=== PATIENT | male | born 1990 | race Caucasian/White ===

== ENCOUNTER 2021-01-02 23:04 | Emergency (ER) | payer BC, SELFPAY ==
[2021-01-02 23:35] VITALS: BP 125/77; PULSE 76; RESP 20; TEMP 36.5; O2SAT 97
[2021-01-03] MEDS: methylPREDNISolone SOD SUCC 125 MG VIAL IM (00:03)
[2021-01-03] MEDS: diphenhydrAMINE HCl CAP 25 MG CAPSULE 50 MG PO (00:11)
--- NOTE | 2021-01-03 00:11 | ED.SKABFB ---
HPI - Skin/Abscess/Foreign Bdy General Chief complaint: Skin/Abscess/Foreign Body Stated complaint: itchy everywhere Time Seen by Provider: 01/02/21 23:08 Source: patient and RN notes reviewed Mode of arrival: ambulatory Limitations: no limitations History of Present Illness complaint: other (mild generalized skin itching x several days.) Onset (ago): day(s) (10) Tetanus up to date: unsure Location: generalized Severity: mild Severity scale (1-10): 2 Quality: pruritic Pain Consistency: other (pain-free) Relieving factors: topical medication and medication Exacerbating factors: none Context: recent illness Associated symptoms: itching Related Data Home Medications Medication Instructions Recorded Confirmed methylphenidate HCl [Concerta] 54 mg PO DAILY 01/02/21 01/02/21 Allergies Allergy/AdvReac Type Severity Reaction Status Date / Time ibuprofen [From Motrin] AdvReac Nausea Verified 01/02/21 23:46 Review of Systems Review of Systems: All systems reviewed & are unremarkable except as noted in HPI and below Allergic/Immunologic: Comments: mild generalized skin itching PMFSH Past Medical History Medical History (Updated 01/03/21 @ 00:37 by Raisa Nguyen MD) Urticaria Exam Const: General: no acute distress Nutritional Appearance: well nourished Orientation/consciousness: patient oriented x3 HENMT: Head: normal to inspection Ears: external ears normal and TM's normal bilaterally General nose exam: Normal external nose present and Normal nares present Face and sinus: normal facial exam Mouth: Yes moist mucous membranes Eyes: Conjunctivae: conjunctivae normal Pupils: Equal, round and reactive pupils present EOM: EOMs intact bilaterally Neck: Neck: normal visual inspection and no lymphadenopathy Chest: Chest palpation & inspection: normal inspection of the chest Resp: Effort & Inspection: normal respiratory effort Auscultation: clear to auscultation bilaterally Cardio: Rate: regular rate Rhythm: regular rhythm GI: GI Palp: Yes Soft to palpation (non-tender) : General: Yes bladder normal to palpation and Yes no CVA tenderness Testes: Testes normal Back/Spine/Pelvis: Back: no CVA tenderness Skin: General skin exam: normal color Rashes: no rashes Neuro: General: patient oriented x3, moves all extremities, no meningeal signs, no focal motor deficits and CN's II-XI intact bilaterally Extrem: General: normal to inspection and no pedal edema Psych: Appearance: grossly normal and well kempt Mental Status: mental status grossly normal Thought content: Yes Normal thought content present Course Course Emergency Course: Pt was stable in the ED. less itching. Reevaluation(s) Date: 01/03/21 Time: 00:05 Vital Signs Vital signs: Vital Signs Temperature 36.5 C 01/02/21 23:35 Pulse Rate 76 01/02/21 23:35 Respiratory Rate 20 01/02/21 23:35 Blood Pressure 125/77 01/02/21 23:35 Pulse Oximetry 97 01/02/21 23:35 Temperature 36.5 C 01/03/21 00:12 Pulse Rate 76 01/03/21 00:12 Respiratory Rate 01/03/21 00:12 Blood Pressure 125/77 01/03/21 00:12 Pulse Oximetry 97 01/03/21 00:12 MDM - Skin/Abscess/Foreign Bdy Differential Diagnosis Differential diagnosis: Likely urticaria Medical Records Attestation: I reviewed the patient's medical records. Critical Care Time Critical Care Time Critical Care Time: No Total Critical Care Time: 0 Discharge Plan Discharge Clinical Impression: Urticaria Patient Disposition: Home, Self-Care Condition: Stable Instructions: Antibiotic Form, Urticaria (ED) Additional Instructions: home. May RTC prn. PMD in 1-2 days. Rx below. Topical anti-itch OTC creams. Prescriptions: New methylprednisolone [Methylpred DP] 4 mg tablets,dose pack See Rx Instructions .ROUTE .COMPLEX Qty: 21 RF: 0 diphenhydramine HCl [Benadryl] 25 mg capsule 50 mg PO TID PRN (Reason: allergic reaction) Qty: 20 RF
[2021-01-03 00:12] VITALS: BP 125/77; PULSE 76; RESP 20; TEMP 36.5; O2SAT 97
== END 2021-01-03 00:32 | disposition home or self-care (01) ==
PROVIDERS: Emergency Provider Emergency Medicine
DX: L50.9 Urticaria, unspecified (principal)
CPT/HCPCS: 96372; 99283; A9270; J2930

== ENCOUNTER 2021-07-15 12:58 | Outpatient (CLI) | payer BC, SELFPAY ==
--- NOTE | ~2021-07-15 | XR_ITS ---
XR ribs RT 2V w CXR 2V DATE: 07/15/2021 13:53 INDICATION: Intermittent right chest pain for 2 years TECHNIQUE: PA and lateral chest. 4 views of the right ribs. COMPARISON: 12/20/2015 2 view chest FINDINGS: No right rib fracture or bone destruction is detected. Normal heart size. No hilar or mediastinal enlargement. No pulmonary infiltrate or consolidation, ple ural effusion or pulmonary vascular congestion or pneumothorax. IMPRESSION: No right rib fracture No active cardiopulmonary disease Reviewed, dictated and finalized at location A.
== END 2021-07-15 12:59 | disposition home or self-care (01) ==
LOC: CHSLAB 13:03
PROVIDERS: PCP Family Medicine; Visit Provider Physician Assistant
DX: R07.81 Pleurodynia (principal)
CPT/HCPCS: 71046; 71100

== ENCOUNTER 2021-12-04 20:52 | Emergency (ER) | payer BC, SELFPAY ==
--- NOTE | ~2021-12-04 | XR_ITS ---
EXAMINATION: XR chest 1V DATE: 12/04/2021 22:20 INDICATION: Chest pain. TECHNIQUE: A single frontal view of the chest was obtained. COMPARISON: Chest 2 views 07/15/2021, CT abdomen 12/20/15 FINDINGS: The chest demonstrates clear lungs without pneumonia, pleural effusion, or pneumothorax. Th e heart size is normal. IMPRESSION: 1. No acute cardiopulmonary disease. Reviewed, dictated and finalized at location A.
--- NOTE | ~2021-12-04 | CT_ITS ---
EXAMINATION: CT brain wo con INDICATION: Headache COMPARISON: None TECHNIQUE: Standard unenhanced head CT. The dose-length product (DLP) was 605.33 mGy-cm. The mA was a djusted according to patient size. Iterative reconstruction technique was employed. FINDINGS: There is no intracranial hemorrhage, acute infarction, or abnormal mass lesion. The ventric les are normal. There is no abnormal mass effect or midline shift. The blair-white matter differentiat ion is normal. The basal cisterns are patent. The orbits are normal. There is mild mucosal thickening of the paranasal sinuses. IMPRESSION: 1. No acute intracranial abnormality. Reviewed, dictated and finalized at location B.
[2021-12-04 21:23] VITALS: BP 129/91; PULSE 105; RESP 18; TEMP 36.6; O2SAT 96
--- NOTE | 2021-12-04 21:57 | ECG_ITS ---
Measurements Intervals [place] Rate: 86 P: 34 WI: 149 QRS: 9 QRSD: 107 T: 39 QT: 350 QTc: 419 Interpretive Statements SINUS RHYTHM INCOMPLETE RIGHT BUNDLE BRANCH BLOCK CANNOT RULE OUT SEPTAL MYOCARDIAL INFARCTION BORDERLINE ECG NO PREVIOUS ECG AVAILABLE FOR COMPARISON Electronically Signed On 12-05-2021 16:07:08 CDT by Andrew Marquez M.D.
[2021-12-04 22:47] LABS: Basophils Absolute Auto 0.05 K/mm3 (0.00-0.10); Basophils Percent Auto 0.7 % (0.0-1.0); Eosinophils Absolute Auto 0.12 K/mm3 (0.02-0.50); Eosinophils Percent Auto 1.6 % (1.0-6.0); Hematocrit 40.8 % (40.0-54.0); Hemoglobin 13.5 g/dL (14.0-18.0); Immature Granulocyte Absolute 0.03 K/mm3 (0.00-0.00); Immature Granulocyte Percent A 0.4 % (0.0-0.0); Lymphocytes Absolute Auto 2.61 K/mm3 (1.10-4.50); Lymphocytes Percent Auto 35.3 % (18.0-42.0); Mean Corpuscular HGB Conc 33.1 g/dL (32.0-36.0); Mean Corpuscular Hemoglobin 29.7 pg (27.0-31.0); Mean Corpuscular Volume 89.7 fL (78.0-102.0); Mean Platelet Volume 10.4 fl (8.7-11.0); Monocytes Absolute Auto 0.45 K/mm3 (0.10-0.90); Monocytes Percent Auto 6.1 % (2.0-11.0); Neutrophils Absolute Auto 4.1 K/mm3 (1.7-7.2); Neutrophils Percent Auto 55.9 % (50.0-70.0); Platelet Count Result 232 K/mm3 (150-420); Red Blood Count 4.55 M/mm3 (4.70-6.10); Red Cell Distribution Width 12.3 % (11.6-14.4); White Blood Count 7.4 K/mm3 (4.8-10.8)
[2021-12-04 22:55] LABS: Add Urine Microscopic? NO; Appearance Urine Clear (Clear); Bilirubin Urine Negative (Negative); Blood Urine Negative (Negative); Color Urine Light Yellow (Yellow); Glucose Urine UA Negative (Negative); Ketones Urine Negative (Negative); Leukocyte Esterase Ur Negative (Negative); Nitrate Urine Negative (Negative); Protein Urine Negative (Negative); Specific Grav Ur >= 1.030 (1.010-1.020); Urobilinogen Urine 0.2 mg/dL (0.2-1.0); pH Urine 5.5 (5.0-8.0)
[2021-12-04 23:01] LABS: Amphetamine Screen Urine Negative (Negative); Barbiturate Screen Urine Negative (Negative); Benzodiazepines Screen Urine Negative (Negative); Cannabinoid Screen Urine Negative (Negative); Cocaine Screen Urine Negative (Negative); Methadone Screen Urine Negative (Negative); Opiate Screen Urine Negative (Negative); Phencyclidine Screen Urine Negative (Negative)
[2021-12-04 23:03] LABS: Alanine Aminotransferase 35 U/L (16-63); Albumin Level 3.6 g/dL (3.4-5.0); Alkaline Phosphatase 63 U/L (46-116); Anion Gap 7 mmol/L (8-16); Aspartate Amino Transferase 24 U/L (15-37); Bilirubin,Total 0.2 mg/dL (0.00-1.00); Blood Urea Nitrogen 17 mg/dL (7-18); Carbon Dioxide 28 mmol/L (21-32); Chloride 105 mmol/L (98-108); Estimated Glomerular Filt Rate > 60; Glucose 113 mg/dL (70-99); Magnesium 2.1 mg/dL (1.8-2.4); Osmolality Calculated 292 mOsm/kg (285-295); Potassium 3.8 mmol/L (3.5-5.1); Sodium 140 mmol/L (136-145); Total Protein 6.9 g/dL (6.4-8.2)
[2021-12-04 23:13] LABS: Ethanol < 3 mg/dL (0-6); Troponin I < 4.0 ng/L (0.00-60.4)
--- NOTE | 2021-12-04 23:19 | ED.GENADULT ---
HPI - General Adult General Chief complaint: Unspecified Stated complaint: body cramping up Time Seen by Provider: 12/04/21 20:54 Source: patient and RN notes reviewed Mode of arrival: ambulatory Limitations: no limitations History of Present Illness complaint: generalized muscle cramping with light-headedness and fainting episodes whi Onset (ago): day(s) (3) Radiation: non-radiation Severity: mild Severity scale (1-10): 3 Pain Consistency: other (no acute pain.) Relieving factors: none Exacerbating factors: none Associated symptoms: syncope Related Data Home Medications Medication Instructions Recorded Confirmed methylphenidate HCl 54 mg 54 mg PO DAILY 01/02/21 12/04/21 tablet,extended release 24 hr (Concerta) Allergies Allergy/AdvReac Type Severity Reaction Status Date / Time ibuprofen [From Motrin] AdvReac Nausea Verified 01/02/21 23:46 Review of Systems Review of Systems: All systems reviewed & are unremarkable except as noted in HPI and below Constitutional: Constitutional: Reports no additional constitutional complaints Eyes: Eyes: Reports no additional eye complaints ENT: Reports system reviewed and no additional complaints, except as documented Cardiovascular: Cardiovascular: Reports no additional cardiovascular complaints Respiratory: Respiratory: Reports no additional respiratory complaints Gastrointestinal: Gastrointestinal: Reports no additional gastrointestinal complaints Musculoskeletal: Musculoskeletal: Reports no additional musculoskeletal complaints and Reports muscle cramps Integumentary/Breasts: Skin/Breast: Reports system reviewed and no additional complaints, except as docu Neurologic: Reports system reviewed and no additional complaints, except as documented and Reports syncope Psychiatric: Psychiatric: Reports no additional psychiatric complaints Endocrine: Endocrine: Reports no additional endocrine complaints Hematologic/Lymphatic: Hematologic/Lymphatic: Reports no additional hematologic/lymphatic complaints Allergic/Immunologic: Allergic/Immunologic: Reports no additional allergic/immunologic complaints PMFSH Past Medical History Medical History ADD (attention deficit disorder) Muscle cramping Urticaria Exam Const: General: cooperative and no acute distress Nutritional Appearance: well nourished Orientation/consciousness: patient oriented x3 Limitations: no limitations HENMT: Head: normal to inspection Ears: external ears normal, TM's normal bilaterally and EAC's normal General nose exam: Normal external nose present and Normal nares present Face and sinus: normal facial exam and sinuses nontender Mouth: Yes Normal oral and palatal mucosa present and Yes moist mucous membranes Teeth and gingiva: dentition normal Throat: posterior oropharynx normal Eyes: Conjunctivae: conjunctivae normal Pupils: Equal, round and reactive pupils present EOM: EOMs intact bilaterally Neck: Neck: normal visual inspection, no lymphadenopathy and no meningeal signs Chest: Chest palpation & inspection: normal inspection of the chest Resp: Effort & Inspection: normal respiratory effort Auscultation: clear to auscultation bilaterally Cardio: Rate: regular rate Rhythm: regular rhythm GI: GI Palp: Yes Soft to palpation and No Tenderness to palpation present (GI) Auscultation: normal bowel sounds : General: Yes bladder normal to palpation and Yes no CVA tenderness Back/Spine/Pelvis: Back: no CVA tenderness Skin: General skin exam: normal color Rashes: no rashes Wounds: no wounds Neuro: General: patient oriented x3, moves all extremities, no meningeal signs, no focal motor deficits and CN's II-XI intact bilaterally Cranial nerves: Yes Equal, round and reactive pupils present and Yes Nystagmus not present Speech: normal speech Gait exam (Neuro): Normal gait present Extrem: General: normal to inspection and
== END 2021-12-04 23:34 | disposition home or self-care (01) ==
PROVIDERS: Emergency Provider Emergency Medicine; PCP Family Medicine
DX: R55 Syncope and collapse (principal)
CPT/HCPCS: 36415; 70450; 71045; 80053; 80307; 81003; 83735; 84484; 85025; 93005; 99284

== ENCOUNTER 2022-08-26 10:00 | Emergency (ER) | payer BC, SELFPAY ==
--- NOTE | ~2022-08-26 | CT_ITS ---
EXAMINATION: CT knee LT wo con DATE: 08/26/2022 11:02 INDICATION: Left knee pain TECHNIQUE: Computed tomography (CT) of the left knee was performed without intravenous contrast. The dose-length product was 597.13 mGy-cm. Automated exposure control and iterative reconstruction techni que were employed. COMPARISON: None FINDINGS: There is anatomic alignment. No fracture, subluxation or dislocation. There is mild osteoar thritis. No significant joint effusion. IMPRESSION: 1. No acute bone or joint abnormality. 2: Mild osteoarthritis. Reviewed, dictated and finalized at location A.
[2022-08-26 10:04] VITALS: BP 138/80; PULSE 77; RESP 18; TEMP 36.3
[2022-08-26] MEDS: KETOROLAC (*BKC) 60 MG/2 ML VIAL IM (10:31)
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
[2022-08-26 11:31] VITALS: BP 152/75; PULSE 82; RESP 17; TEMP 36.9; O2SAT 100
== END 2022-08-26 11:33 | disposition home or self-care (01) ==
PROVIDERS: Emergency Provider Emergency Medicine; PCP Family Medicine
DX: S83.412A Sprain of medial collateral ligament of left knee, initial encounter (principal); W20.8XXA Other cause of strike by thrown, projected or falling object, initial encounter; Y92.810 Car as the place of occurrence of the external cause
CPT/HCPCS: 73700; 96372; 99284; J1885; L1830

== ENCOUNTER 2023-12-24 18:48 | Emergency (ER) | payer BC, SELFPAY ==
[2023-12-24 18:48] VITALS: BP 136/77; PULSE 97; RESP 16; TEMP 36.8; O2SAT 98
--- NOTE | 2023-12-24 18:58 | PC.NURSE ---
assumed care. report received from lisa barrios.
[2023-12-24] MEDS: CLINDAMYCIN HCL 150 MG CAP 450 MG PO (19:06)
[2023-12-24] MEDS: ONDANSETRON HCL ODT 4 MG TABLET PO (19:06)
--- NOTE | 2023-12-24 19:09 | PC.NURSE ---
patient asked this rn if right elbow could be numbed. dr doll already told patient that area could not be numbed. patient then asked if he could rub muscle relaxer on area. educated patient on cellulitis and the need to take antibiotics for elbow. patient states oh ok. thats what he said too
--- NOTE | 2023-12-24 19:10 | ED.GENADULT ---
HPI - General Adult General Chief complaint: Wound/Laceration Stated complaint: spider bite. Time Seen by Provider: 12/24/23 18:55 History of Present Illness HPI narrative: Matthieu is a 33M that presented to the ED with pain and swelling in his right elbow. He was reportedly bitten by a spider a couple days ago. He had some purulent drainage yesterday but today it has become more painful, warm and has spreading erythema. Related Data Home Medications Medication Instructions Recorded Confirmed lorazepam 1 mg tablet 2 mg PO DAILY PRN Anxiety 04/30/23 12/24/23 gabapentin 800 mg tablet 800 mg PO BID 12/24/23 12/24/23 Allergies Allergy/AdvReac Type Severity Reaction Status Date / Time tramadol Allergy Intermediate Rash Verified 05/31/23 13:57 ibuprofen [From Motrin] AdvReac Other Verified 12/24/23 18:50 Review of Systems Review of Systems: All systems reviewed & are unremarkable except as noted in HPI and below PMFSH Past Medical History Medical History ADD (attention deficit disorder) Allergies Anxiety Muscle cramping Urticaria Family History Family History Father Diabetes mellitus Hypertension Mother Diabetes mellitus Social History Social History Social History: Caffeine- Coffee/tea Smoking status: Never smoker Alcohol intake: current Alcohol use details: beer Substance use: never Substance use type: does not use Lack of Transportation: No Lack of Food: Sometimes True Current Housing: I Have Housing Concerned About Future Housing: YES Difficulty Paying Gas/Electric Bills: Decline to Answer Difficulty Paying for Meds: No Currently Unemployed: No Education: Trade/Vocational Certificate Difficulty w/ Childcare or Family Care: No Living arrangements: with family Gender identity (if verbalized by the patient): Male Agree to blood products: Yes Exam Const: General: cooperative, healthy appearing, comfortable, no acute distress, well developed, alert, awake and Physically active Orientation/consciousness: oriented to person, oriented to place and oriented to time HENMT: Head: normal to inspection, normocephalic and atraumatic Ears: hearing grossly normal bilaterally and external ears normal Face/Nose/Sinus: Normal external nose present Eyes: General: appearance normal, both eyes and all related structures Periorbital: periorbital findings normal Sclera: sclerae normal Pupils: Equal, round and reactive pupils present Neck: Neck: normal visual inspection Chest: Chest palpation & inspection: normal inspection of the chest Resp: Effort & Inspection: normal respiratory effort, able to speak in complete sentences and no respiratory distress Cardio: Jugular venous distension: no JVD Skin: General skin exam: normal color and no rashes or lesions noted Other: right elbow had a break in the skin with a 10cm area of surrounding erythema that is warm and TTP. No fluctuance appreciated at this time. Neuro: General: oriented to person, oriented to place and oriented to time Cranial nerves: Yes Equal, round and reactive pupils present Extrem: General: normal to inspection Course Course Emergency Course: Ordered abx, hydroxyzine, toradol and zofran. Placed leslie wrap and ice. Vital Signs Vital signs: Vital Signs Temperature 98.2 F 12/24/23 18:48 Pulse Rate 97 12/24/23 18:48 Respiratory Rate 16 12/24/23 18:48 Blood Pressure 136/77 12/24/23 18:48 Pulse Oximetry 98 12/24/23 18:48 Oxygen Delivery Room Air 12/24/23 18:48 Temperature 98.2 F 12/24/23 18:48 Pulse Rate 97 12/24/23 18:48 Respiratory Rate 16 12/24/23 18:48 Blood Pressure 136/77 12/24/23 18:48 Pulse Oximetry 98 12/24/23 18:48 Oxygen Delivery Room Air 12/24/23 18:48 Medical Decision Making V
--- NOTE | 2023-12-24 19:25 | PC.NURSE ---
ice pack placed to right elbow
--- NOTE | 2023-12-24 19:29 | PC.NURSE ---
rima walked in room to hand pt ice and pt hand the wrap off his arm and stated he cant do the wrap because it puts too much pressure on the wound site
[2023-12-24] MEDS: hydrOXYzine HCL 25 MG TABLET 50 MG PO (19:41)
--- NOTE | 2023-12-24 19:45 | PC.NURSE ---
patient very anxious in room. states it stings, how am i supposed to wipe my butt? i can barely move my arm . Educated patient on cellulitis/swelling and the need to allow antibiotics to work. states he needs them to work now. educated again that antibiotics need time to get into the system and work on the infection. this rn has explained to patient several different times and ways about cellulitis care and antibiotic use to heal right elbow
--- NOTE | 2023-12-24 19:51 | PC.NURSE ---
Dr York at the bedside giving discharge instructions and additional education on cellulits to right elbow.
== END 2023-12-24 19:54 | disposition home or self-care (01) ==
PROVIDERS: Emergency Provider Family Medicine; PCP Family Medicine
DX: T63.301A Toxic effect of unspecified spider venom, accidental (unintentional), initial encounter (principal); L03.113 Cellulitis of right upper limb
CPT/HCPCS: 99283; A9270

== ENCOUNTER 2024-05-09 01:43 | Emergency (ER) | payer BC, SELFPAY ==
--- NOTE | ~2024-05-09 | XR_ITS ---
Right wrist Technique: PA, oblique, lateral, and ulnar deviation views were obtained. Clinical History: Injury Findings: No acute fracture or dislocation is seen. Osseous alignment is anatomic. Joint spaces are p reserved. Soft tissues are unremarkable. Impression: Unremarkable right wrist radiographs. Reviewed, dictated and finalized at location . 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
[2024-05-09 01:45] VITALS: BP 133/83; PULSE 90; RESP 18; TEMP 37.1; O2SAT 98
--- NOTE | 2024-05-09 01:59 | ED.UPPEXIN ---
HPI - Extremity Injury (Upper) General Chief Complaint: Extremity Injury, Upper Stated Complaint: upper extremity injury Time Seen by Provider: 05/09/24 01:47 Source: patient Mode of arrival: ambulatory Limitations: no limitations History of Present Illness HPI narrative: this is a 34-year-old male who presents with right wrist pain patient states that he had a minor fall of the week prior and has been having some discomfort to the right wrist area with some mild numbness to his thumb has a strong brisk radial pulse on the right. complaint: injury to: right Onset (ago): week(s) Other Extremity Injury: Right: wrist ( Painful with palpation) Handedness: right Place: outdoors Severity: mild Related Data Home Medications ?Medication ?Instructions ?Recorded ?Confirmed ?Last Taken ?Type lorazepam 1 mg tablet 2 mg PO DAILY PRN Anxiety 04/30/23 12/24/23 Unknown History gabapentin 800 mg tablet 800 mg PO BID 12/24/23 12/24/23 Unknown History Allergies Allergy/AdvReac Type Severity Reaction Status Date / Time tramadol Allergy Intermediate Rash Verified 05/09/24 01:49 ibuprofen (From Motrin) AdvReac Other Verified 05/09/24 01:49 Review of Systems Review of Systems: All systems reviewed & are unremarkable except as noted in HPI and below PMFSH Past Medical History Medical History Allergies Anxiety Muscle cramping ADD (attention deficit disorder) Urticaria Family History Family History Father Diabetes mellitus Hypertension Mother Diabetes mellitus Social History Social History Social History: Caffeine- Coffee/tea Smoking status: Never smoker Alcohol intake: current Alcohol use details: beer Substance use: never Substance use type: does not use Lack of Transportation: No Lack of Food: Sometimes True Current Housing: I Have Housing Concerned About Future Housing: YES Difficulty Paying Gas/Electric Bills: Decline to Answer Difficulty Paying for Meds: No Currently Unemployed: No Education: Trade/Vocational Certificate Difficulty w/ Childcare or Family Care: No Living arrangements: with family Gender identity (if verbalized by the patient): Male Agree to blood products: Yes Exam Const: General: healthy appearing Nutritional Appearance: well nourished Orientation/consciousness: patient oriented x3 Resp: Effort & Inspection: normal respiratory effort Auscultation: clear to auscultation bilaterally Cardio: Rate: regular rate Rhythm: regular rhythm GI: GI Palp: Yes Soft to palpation Neuro: General: patient oriented x3, moves all extremities and no meningeal signs Extrem: Other: Tender right wrist area with palpation, negative to kneel a negative Phalen's Course Course Emergency Course: x-ray performed shows no acute fractures advise Wolf wrap and follow up with primary for possible MRI. Vital Signs Vital signs: Vital Signs Temperature 37.1 C 05/09/24 01:45 Pulse Rate 90 05/09/24 01:45 Respiratory Rate 18 05/09/24 01:45 Blood Pressure 133/83 05/09/24 01:45 Pulse Oximetry 98 05/09/24 01:45 Oxygen Delivery Room Air 05/09/24 01:45 Temperature 37.1 C 05/09/24 01:45 Pulse Rate 90 05/09/24 01:45 Respiratory Rate 18 05/09/24 01:45 Blood Pressure 133/83 05/09/24 01:45 Pulse Oximetry 98 05/09/24 01:45 Oxygen Delivery Room Air 05/09/24 01:45 Critical Care Time Critical Care Time Critical Care Time: No Discharge Plan Discharge Clinical Impression: Sprain of right wrist Qualifiers: Encounter type: initial encounter Qualified Code(s): S63.501A - Unspecified sprain of right wrist, initial encounter Patient Disposition: Home, Self-Care Condition: Stable Instructions: Antibiotic Form, Wrist Sprain (ED) Additional Instructions: advise to take Tylenol as needed, and to follow with primary for further evaluation and treatment Patient Language: Algerian Prescriptions: No Action lorazepam 1 mg tablet 2 mg PO DAILY PRN (Reason: Anxiety) gabapentin 800 mg tablet 800 mg PO BID clindamycin HCl 300 mg capsule 300 mg PO Q6H 5 Days Qty: 20 0RF ondansetron 4 mg tablet,disintegrating 4 mg PO Q8H PRN (Reason: nausea and vomiting) Qty: 10 0RF hydroxyzine pamoate 50 mg capsule 50 mg PO TID PRN (Reason: itching) Qty: 10 0RF omeprazole 40 mg capsule,delayed release(DR/EC) 40 mg PO BID Qty: 60 3RF Follow-up/Referrals: Mason,ANDREAS Sorensen [Primary Care Provider] - Time of Disposition: 02:03
== END 2024-05-09 02:11 | disposition home or self-care (01) ==
PROVIDERS: Emergency Provider Emergency Medicine; PCP Physician Assistant
DX: S63.501A Unspecified sprain of right wrist, initial encounter (principal); W19.XXXA Unspecified fall, initial encounter
CPT/HCPCS: 73110; 99283

== ENCOUNTER 2024-06-02 08:43 | Outpatient (CLI) | payer BC, SELFPAY ==
--- NOTE | ~2024-06-02 | US_ITS ---
EXAMINATION: US right upper quadrant DATE: 06/02/2024 09:07 INDICATION: Abdominal pain TECHNIQUE: Multiple grayscale and Doppler ultrasound images of the abdomen were obtained. COMPARISON: 12/20/2015 FINDINGS: The pancreatic head and body are normal in appearance. The pancreatic tail is not visualized. Liver has normal contour, with a smooth surface. There is increased parenchymal echogenicity and coarsened echotexture consistent with diffuse hepatic steatosis. No liver lesion identified. No intrahepatic b iliary duct dilation suspected. Portal venous flow was seen in the hepatopetal, normal direction and has normal Doppler waveform. The gallbladder is normal in appearance. There is no cholelithiasis. Th e common bile duct measures 2-3 mm, which is normal. Sonographic Etienne sign was reported as negative by the transport driver. Visualized portion of the right kidney demonstrates normal contour and echogenic ity with no hydronephrosis. IMPRESSION: 1. Diffuse hepatic steatosis. Reviewed, dictated and finalized at location A. NDER INSPECTOR
--- OUTSIDE RECORDS SUMMARY | 2024-06-02 11:30 | XMS_ITS | Clinical Summary ---
Author Organization [facility] Address [address] [place] [phone] Care Team Providers Care Tip Cementer Name Role Phone Deangelo Molina MD Primary Care Provider [phone] Allergies Active Allergy Reactions Criticality Noted Date Comments Ibuprofen Other (See comments) Reaction: OTHER REACTION, Tramadol Rash Medium 01/11/2023 Medications cyclobenzaprine (FLEXERIL) 10 mg tablet Take 1 tablet (10 mg total) by mouth 2 (two) times a day as needed for muscle spasms 20 tablet 01/11/2023 Active Active Problems No known active problems Social History Tobacco Use Types Packs/Day Years Used Date Smoking Tobacco: Never Smokeless Tobacco: Never Personal Safety Answer Date Recorded Have you ever been in or are you currently in a harmful physical or emotional relationship or is someone making you feel afraid or unsafe? Denies 01/11/2023 Sex and Gender Information Value Date Recorded Sex Assigned at Not on file Legal Sex Male 9:31 PM FULFILLMENT REPRESENTATIVE Gender Identity Not on file Sexual Orientation Not on file Obstetrics History Last Filed Vital Signs Vital Sign Reading Time Taken Comments Blood Pressure 126/68 01/11/2023 2:45 PM CDT Pulse 78 01/11/2023 4:45 PM CDT Temperature 36.4 C (97.5 F) 01/11/2023 2:45 PM CDT Respiratory Rate 20 01/11/2023 2:45 PM CDT Oxygen Saturation 96% 01/11/2023 4:45 PM CDT Inhaled Oxygen Concentration - - Weight 127 kg (280 lb) 01/11/2023 2:45 PM CDT Height 195.6 cm (6' 5 ) 01/11/2023 2:45 PM CDT Body Mass Index 33.2 01/11/2023 2:45 PM CDT Plan of Treatment Health Maintenance Due Date Last Done Comments Depression Screening 1988 Hepatitis C Screening 1988 Varicella Vaccines (1 of 2 - 13+ 2-dose series) 2001 Regular Well Visit/Exam 18-64 2006 Influenza Vaccine (#1) 2023 12/30/2021 DTaP/Tdap/Td Vaccine (6 - Td or Tdap) 10/31/2026 10/31/2016, 02/04/2004, 01/18/1993, Additional history exists Hepatitis B Screening Completed 02/27/2001 , 02/01/2000, 11/23/1999 HPV Vaccines Aged Out No longer eligi ble based on patient's age to complete this topic Pneumococcal vaccine <65 Aged Out No longer eligible based on patient's age to complete this topic Insurance Six Apart [place] Apart [place] [facility] [address] [facility] Care Teams Tip Cementer Relationship Specialty Start Date End Date Deangelo Molina MD PCP - General 12/26/21
--- OUTSIDE RECORDS SUMMARY | 2024-06-02 11:30 | XMS_ITS | Referral Summary ---
Author Organization [facility] Address [address] [place] [phone] Care Team Providers Care Airplane Cover Maker Name Role Phone Deangelo Molina MD Primary Care Provider [phone] Allergies Active Allergy Reactions Criticality Noted Date [...] on file Legal Sex Male 9:31 PM FORM PRESSER Gender Identity Not on file Sexual Orientation Not on file Last Filed Vital Signs Vital Sign Reading [...] 01/11/2023 2:45 PM CDT Plan of Treatment Not on file Insurance Property Partner [place] Property Partner AR Property Partner [place] [facility] [address] [employer] Care Teams Airplane Cover Maker Relationship Specialty Start Date End Date Deangelo Molina MD PCP - General 12/26/21
--- OUTSIDE RECORDS SUMMARY | 2024-06-02 11:31 | XMS_ITS | Encounter Summary ---
Author Organization [facility] Address [address] [place] [address] Care Team Providers Care Electro Winning Operator Name Role Phone Edu Cuevas Primary Care Provider [phone] Encounter Details Date Type Department Care Team (Late st Contact Info) Description 09/21/2018 Abstract SFL CONVERSION [address] [place] [address] , Generic Conversion, Social History Tobacco Use Types Packs/Day Years Used Date Smoking Tobacco: Every Day Smokeless Tobacco: Never Alcohol Use Standard Drinks/Week Comments Yes 0 (1 standard drink = 0.6 oz pur e alcohol) AUDIT-C Answer Date Recorded Frequency of Alcohol Consumption Monthly or less 02/26/2018 Average Number of Drinks Not on file 018 Frequency of Binge Drinking Not on file 02/14 Sex and Gender Information Value Date Recorded Sex Assigned at Male 05/29/2024 3:54 PM ACETYLENE TORCH BURNER Legal Sex Male 8:29 AM CDT Gender Identity Not on file Sexual Orientation Not on file documented as of this encounter Plan of Treatment Not on file documented as of this encounter Visit Diagnoses Not on filedocumented in this encounter Additional Health Concerns Infection Onset Date Last Indicated Resolved Time COVID-19 Rule Out 12/09/2020 12/09/2020 12/09/2020 11:53 AM CDT COVID-19 Confirmed 12/09/2020 12/09/2020 12:33 AM CDT documented as of this encounter Care Teams Electro Winning Operator Relationship Specialty Start Date End Date Edu Cuevas PA [address] [place] [phone] PCP - General PHYSICIAN COMMUNICATION COORDINATOR 02/15/18 documented as of this encounter
--- OUTSIDE RECORDS SUMMARY | 2024-06-02 11:31 | XMS_ITS ---
Author Organization [facility] [employer] Address [address] [address] Care Team Providers Care Product Distribution Specialist Name Role Phone Deangelo Molina MD Primary Care Provider Unavailgely deutsch NortonDion Unavailable [phone] Nadeen Medina Unavailable [phone] REASON FOR VISIT THIS NO SHOW IS ACCURATE, NO CALLS OR MESSAGES RECEIVED TO CANCEL OR R/S Social History Sex Assigned At : Social History Observation Description Sex Assigned At Male Encounters Encounter Location Date Provider Diagnosis [facility] [employer] [place] [address] [address] 05/05/2024 Nadeen Medina Plan Of Treatment No Information Progress Notes * NAZ RIVER RDOB:[birth year] (34 yo M)Acc No.[id number]:05/05/2024 Patient: Binta NAZ LOCKETT Provider: Binta MEDINA LCSW :1990 A ge:33 Y S ex:Male Date:05/05/2024 Address:[address] [place], [place] [phone] Pcp:Deangelo Molina MD Data: * Chief Complaints: * 1 . THIS NO SHOW IS ACCURATE, NO CALLS OR MESSAGES RECEIVED TO CANCEL OR R/S. * Medical History: * Vitals: Assessment: Plan: * Treatment: * Procedure Codes: N STHR NO SHOW THERAPY * Billing Information: * Visit Code: * Procedure Codes: NSTHR NO SHOW THERAPY. * Electronic signature of Nadeen Medina LCSW on 06/02/2024 at 11:30 AM LOG CHECK SCALER Sign off status: Pending Signatures: No Ad Hoc Signature Added * Provider: Binta MEDINA LCSW Date: 0 05/05/2024 Generated for Roselyn Blankenship/Curt on: 0 06/02/2024 11:30 AM LOG CHECK SCALER
--- OUTSIDE RECORDS SUMMARY | 2024-06-02 11:31 | XMS_ITS | Referral Summary ---
Author Organization [facility] Address [address] [place] [address] Care Team Providers Care Clearance Coordinator Name Role Phone Deangelo Molina MD Primary Care Provider [phone] Source Comments [facility],non-owned Affiliates and Associated Physician Practices is amultiple site organization consisting of ambulatory clinics and hospital sitesin [place], [place], [place] and [place]. This disclosure is being madepursuant to the Care Everywhere program and may not contain all information available regarding this patient. Last updated 18.[facility] [employer] Allergies No known active allergies Medications * Be aware that medications may not be up to date on this document. Alwaysverify current medications with the patient. Medication Sig Dispensed Refills Start Date End Date Status albuterol HFA (Proventil; Ventolin; Proair) 108 (90 Base) MCG/ACT inhaler INHALE 1 TO 2 INHALATION BY MOUTH FOUR TIMES DAILY NEEDED 12/19/2022 Active benzonatate (Tessalon) 100 MG capsule TAKE 1 CAPSULE BY MOUTH 3 TIMES A DAY NEEDED FOR COUGH 03/14/2023 Active celecoxib (CeleBREX) 200 MG capsule Take 1 (one) capsule by mouth once daily 11/15/2022 Active cloNIDine (Catapres) 0.1 MG tablet Take 1 (one) tablet by mouth 10/19/2022 Active citalopram (CeleXA) 20 MG tablet Take 2 (two) tablets by mouth once daily Active cyclobenzaprine (Flexeril) 10 MG tablet Take 1 (one) tablet by mouth once daily as needed 02/19/2023 Active dexmethylphenidate ER 24hr (Focalin XR) 20 MG capsule 06/04/2023 Active doxycycline hyclate 100 MG tablet Take 1 (one) tablet by mouth once daily 05/21/2023 Active famotidine (Pepcid) 40 MG tablet Take 1 (one) tablet by mouth once daily 03/27/2023 Active DULoxetine (Cymbalta) 30 MG capsule Take 1 (one) capsule by mouth once daily 02/19/2023 Active gabapentin (Neurontin) 800 MG tablet Take 1 (one) tablet by mouth 2 times daily 05/29/2023 Active HYDROcodone-acetamin ophen ([place]) 5-325 MG tablet 10/04/2022 Active LORazepam (Ativan) 1 MG tablet Take 1 (one) tablet by mouth 2 times daily as needed 10/21/2022 Active meloxicam (Mobic) 15 MG tablet Take 1 (one) tablet by mouth once daily 09/27/2022 Active methylphenidate ER (Concerta) 36 MG tablet TAKE 2 TABLETS EVERY DAY BY MOUTH IN THE MORNING FOR 30 DAYS. 12/30/2021 Active methylPREDNISolone (Medrol Dosepak) 4 MG tablet FOLLOW PACKAGE DIRECTIONS 05/28/2023 Active omeprazole (PriLOSEC) 20 MG capsule Take 1 (one) capsule by mouth once daily 11/15/2022 Active QUEtiapine XR 24hr (SEROquel XR) 150 MG tablet 06/06/2023 Active Active Problems No known active problems Social History Tobacco Use Types Packs/Day Years Used Date Smoking Tobacco: Never Smokeless Tobacco: Never Tobacco Cessation:Counseling Given: Not Answered Sex and Gender Information Value Date Recorded Sex Assigned at Not on file Gender Identity Not on file Sexual Orientation Not on file Last Filed Vital Signs Vital Sign Reading Time Taken Comments Blood Pressure 113/72 06/28/2023 2:35 PM CDT Pulse 108 06/28/2023 2:35 PM CDT Temperature - - Respiratory Rate 18 06/28/2023 2:35 PM CDT Oxygen Saturation 100% 06/28/2023 2:35 PM CDT Inhaled Oxygen Concentration - - Weight 133.8 kg (295 lb) 06/28/2023 2:35 PM CDT Height - - Body Mass Index - - Plan of Treatment Not on file Care Teams Clearance Coordinator Relationship Specialty Start Date End Date Deangelo Molina MD [address] [place] [address] PCP - General Family Medicine 06/27/23
--- OUTSIDE RECORDS SUMMARY | 2024-06-02 11:31 | XMS_ITS ---
Author Organization [facility] Address [address] [address] Care Team Providers Care Network Project Manager Name Role Phone Deangelo Molina MD Primary Care Provider UnavailDion Guzman Unavailable [phone] Social History Sex Assigned At : Social History Observation Description Sex Assigned At Male Encounters Encounter Location Date Provider Diagnosis [facility] [place] [address] [address] 03/27/2024 Dion Norton Plan Of Treatment No Information Progress Notes * NAZ RIVER RDOB:[birth year] (33 yo M)Acc No.[id number]:03/27/2024 Patient: A NAZ LOCKETT :1990 A ge:33 Y S ex:Male Address:[address] [place] [address], [phone] * true * Date: Generated for Guerlinei santi/Cortezg/eTransmitting on: 0 06/02/2024 11:30 AM CAMPAIGN ANALYST
--- OUTSIDE RECORDS SUMMARY | 2024-06-02 11:31 | XMS_ITS ---
Author Organization [facility] [employer] Address [facility] [address] [address] Care Team Providers Care Soil Sort Worker Name Role Phone Deangelo Molina MD Primary Care Provider UnavailDion Guzman Unavailable [phone] REASON FOR VISIT N/S FIRST THERAPY APPOINTMENT Social History Sex Assigned At : Social History Observation Description Sex Assigned At Male Encounters Encounter Location Date Provider Diagnosis [facility] [employer] [place] [address] [address] 05/05/2024 Dion Norton Plan Of Treatment No Information Progress Notes * NAZ IRVER RDOB:[birth year] (34 yo M)Acc No.[id number]:05/05/2024 Patient: A NAZ LOCKETT :1990 A ge:33 Y S ex:Male Address:[address] [place] [address], [phone] * true * Date: Generated for Guerlinei ng/Farayg/eTransmitting on: 0 06/02/2024 11:31 AM DIRECTOR OF SUPPLY CHAIN
--- OUTSIDE RECORDS SUMMARY | 2024-06-02 11:31 | XMS_ITS | Clinical Summary ---
Author Organization [facility] Address [address] [place] [address] Care Team Providers Care Freezer Unloader Name Role Phone Deangelo Molina MD Primary Care Provider [phone] Source Comments [facility],non-owned Affiliates and Associated Physician Practices is amultiple site organization consisting of ambulatory clinics and hospital sitesin [place], [place], [place] and [place]. This disclosure is being madepursuant to the Care Everywhere program and may not contain all information available regarding this patient. Last updated 18[facility] [employer] Allergies No known active allergies Medications * [...] 2 times daily 05/29/2023 Active HYDROcodone-acetamin ophen ([place]) 5-325 MG tablet 10/04/2022 Active LORazepam (Ativan) [...] Mass Index - - Plan of Treatment Health Maintenance Due Date Last Done Comments HIV SCREENING 2003 HEPATITIS C SCREENING 05/03/2006 DTAP/TDAP/TD VACCINES (1 - Tdap) 2007 HEPATITIS B VACCINE (1 of 3 - 19+ 3-dose series) 2007 COVID-19 VACCINE (2023-2 5 season) 2023 INFLUENZA VACCINE (#1) 2023 DEPRESSION SCREENING 04/16/2024 ZOSTER VACCINE (1 of 2) 2038 HIB VACCINE Aged Out No longer eligi ble based on patient's age to complete this topic HPV VACCINE Aged Out No longer eligi ble based on patient's age to complete this topic MENINGOCOCCAL (Group B) VACCINE Aged Out No longer eligible based on patient's age to complete this topic MENINGOCOCCAL VACCINE Aged Out No hossein marlee eligible based on patient's age to complete this topic PNEUMOCOCCAL VACCINE Aged Out No long er eligible based on patient's age to complete this topic Care Teams Freezer Unloader Relationship Specialty Start Date End Date Deangelo Molina MD [address] [place] [phone] PCP - General Family Medicine 06/27/23
--- OUTSIDE RECORDS SUMMARY | 2024-06-02 11:31 | XMS_ITS | Patient Health Summary ---
Author Organization [facility] Address [address] [place] [address] Care Team Providers Care Motor Builder Assembler Name Role Phone Deangelo Molina MD Primary Care Provider [phone] Note from [facility],non-owned Affiliates and Associated Physician Practices is amultiple site organization consisting of ambulatory clinics and hospital sitesin [place], [place], [place] and [place]. This disclosure is being madepursuant to the Care Everywhere program and may not contain all information available regarding this patient. Last updated 18.[facility] Allergies No known active allergies Medications * Be aware that medications may not be up to date on this document. Alwaysverify current medications with the patient. * albuterol HFA (Proventil; Ventolin; Proair) 108 (90 Base) MCG/ACT inhaler (Started 12/19/2022) INHALE 1 TO 2 INHALATION BY MOUTH FOUR TIMES DAILY NEEDED * benzonatate (Tessalon) 100 MG capsule(Started 03/14/2023) TAKE 1 CAPSULE BY MOUTH 3 TIMES A DAY NEEDED FOR COUGH * celecoxib (CeleBREX) 200 MG capsule(Started 11/15/2022) Take 1 (one) capsule by mouth once daily * cloNIDine (Catapres) 0.1 MG tablet(Started 10/19/2022) Take 1 (one) tablet by mouth * citalopram (CeleXA) 20 MG tablet Take 2 (two) tablets by mouth once daily * cyclobenzaprine (Flexeril) 10 MG tablet(Started 02/19/2023) Take 1 (one) tablet by mouth once daily as needed * dexmethylphenidate ER 24hr (Focalin XR) 20 MG capsule(Started 06/04/2023) * doxycycline hyclate 100 MG tablet(Started 05/21/2023) Take 1 (one) tablet by mouth once daily * famotidine (Pepcid) 40 MG tablet(Started 03/27/2023) Take 1 (one) tablet by mouth once daily * DULoxetine (Cymbalta) 30 MG capsule(Started 02/19/2023) Take 1 (one) capsule by mouth once daily * gabapentin (Neurontin) 800 MG tablet(Started 05/29/2023) Take 1 (one) tablet by mouth 2 times daily * HYDROcodone-acetaminophen ([place]) 5-325 MG tablet(Started 10/04/2022) * LORazepam (Ativan) 1 MG tablet(Started 10/21/2022) Take 1 (one) tablet by mouth 2 times daily as needed * meloxicam (Mobic) 15 MG tablet(Started 09/27/2022) Take 1 (one) tablet by mouth once daily * methylphenidate ER (Concerta) 36 MG tablet(Started 12/30/2021) TAKE 2 TABLETS EVERY DAY BY MOUTH IN THE MORNING FOR 30 DAYS. * methylPREDNISolone (Medrol Dosepak) 4 MG tablet(Started 05/28/2023) FOLLOW PACKAGE DIRECTIONS * omeprazole (PriLOSEC) 20 MG capsule(Started 11/15/2022) Take 1 (one) capsule by mouth once daily * QUEtiapine XR 24hr (SEROquel XR) 150 MG tablet(Started 06/06/2023) Active Problems No known active problems Social [...] - - Body Mass Index - - Care Teams Motor Builder Assembler Relationship Specialty Start Date End Date Deangelo Molina MD [address] [place] [phone] PCP - General Family Medicine 06/27/23
--- OUTSIDE RECORDS SUMMARY | 2024-06-02 11:31 | XMS_ITS | Clinical Summary ---
Author Organization [facility] Address [address] [place] [address] Care Team Providers Care Racing Driver Name Role Phone Edu Goodwin Primary Care Provider [phone] Allergies Active Allergy Reactions Criticality Noted Date Comments Ibuprofen Other (see comment) 01/01/2022 fever Tramadol Rash Low 09/16/2023 Medications gabapentin (NEURONTIN) 800 MG tablet Take 1 tablet (800 mg total) by mouth 3 (three) times daily. Active LORazepam (ATIVAN) 2 MG/ML oral solution Take 0.5 mLs (1 mg total) by mouth every 8 (eight) hours as needed. Active omeprazole (PRILOSEC) 40 MG capsule Take 1 capsule (40 mg total) by mouth daily. Active HYDROcodone-leslie taminophen (NORCO) 5-325 MG tabletIndicatio ns:Acute Pain < 3 Day Supply Take 1 tablet by mouth every 6 (six) hours as needed for Pain. Indications: Acute Pain < 3 Day Supply 8 tablet 4 Active naloxone (NARCAN) 4 MG/0.1ML nasal spray 1 spray by Nasal route as needed for Opioid reversal. may repeat every 2 to 3 minutes in alternating nostrils until medical assistance becomes available 1 each 4 09/16/19 25 Active Active Problems Problem Noted Date Diagnosed Date Bilateral lumbar radiculopathy 03/28/2019 Blood in stool 02/26/2018 Encounters Date Type Department Care Team Description 05/29/2024 4:00 PM QUARTER SEAMER - 05/29/2024 11:59 PM [facility] Hospital Encounter [facility] [address] [place] [address] Edu Goodwin, PA Discharge Disposition: Home or Self Care (Routine Discharge) 05/29/2024 Travel from Last 3 Months Immunizations Name Administration Dates Next Due Tdap (Boostrix) 09/16/2023 Family History Medical History Relation Comments Diabetes Father Stroke Father Diabetes Mother Relation Status Comments Father Mother Social History Tobacco Use Types Packs/Day Years Used Date Smoking Tobacco: Former Smokeless Tobacco: Never Tobacco Cessation:Counseling Given: Not Answered Alcohol Use Standard Drinks/Week Comments Yes 0 (1 standard drink = 0.6 oz pur e alcohol) drinks 1-2 times a year AUDIT-C Answer Date Recorded Frequency of Alcohol Consumption Monthly or less 02/26/2018 Average Number of Drinks Not on file 018 Frequency of Binge Drinking Not on file 02/14 Sex and Gender Information Value Date Recorded Sex Assigned at Male 05/29/2024 3:54 PM QUARTER SEAMER Legal Sex Male 8:29 AM CDT Gender Identity Not on file Sexual Orientation Not on file Last Filed Vital Signs Vital Sign Reading Time Taken Comments Blood Pressure 123/81 12/24/2023 5:48 PM CDT Pulse 97 12/24/2023 5:48 PM CDT Temperature 37 C (98.6 F) 12/24/2023 5:48 PM CDT Respiratory Rate 16 12/24/2023 5:48 PM CDT Oxygen Saturation 98% 12/24/2023 5:48 PM CDT Inhaled Oxygen Concentration - - Weight 129.7 kg (286 lb) 12/24/2023 5:48 PM CDT Height 193 cm (6' 4 ) 12/24/2023 5:48 PM CDT Body Mass Index 34.81 12/24/2023 5:48 PM CDT Plan of Treatment Health Maintenance Due Date Last Done Comments Annual Physical 1991 Hepatitis C 2006 Hepatitis B Vaccines (1 of 3 - 19+ 3-dose series) 2007 COVID-19 Vaccine ( - 2023- season) 2023 Influenza Adult (#1) 2024 DTaP, Tdap and Td Vaccines (2 - Td or Tdap) 09/15/2033 09/16/2023, 01/18/1993, 07/23/1991, Additional history exists HPV Vaccines Aged Out No longer eligi ble based on patient's age to complete this topic Meningococcal B Vaccine Aged Out No l onger eligible based on patient's age to complete this topic Meningococcal Vaccine Aged Out No hossein marlee eligible based on patient's age to complete this topic Pneumococcal Vaccine: Pediatrics (0 to 5 Years) and At-Risk Patients (6 to 64 Years) Aged Out No longer eligible based on patient's age to complete this topic RSV Immunizations Under 20 Months Aged Out No longer eligible based on patient's age to complete this topic Procedures Procedure Name Priority Date/Time Associated Diagnosis Comments XR THOR SPINE+SWIMMERS Routine 05/29/2024 4:25 PM QUARTER SEAMER Compression fracture of thoracic vertebra ([facility]) from Last 3 Months Results * XR THOR SPINE+SWIMMERS (05/29/2024 4:25 PM QUARTER SEAMER) Anatomical Region Laterality Modality Spine Radiographic Yessica ging 05/29/2024 5:24 PM QUARTER SEAMER Impressions 05/29/2024 5:28 PM QUARTER SEAMER IMPRESSION: 1. Mild anterior wedge compression deformity, lower thoracic spine, unchanged. 2. Linear metallic foreign body identified in the left lateral chest wall. Ordered By: EDU GOODWIN Interpreted By: Javi Renee MD, 05/29/2024 5:24 PM Narrative 05/29/2024 5:28 PM QUARTER SEAMER [place] [id number] [place] [address] Examination: X-ray thoracic spine, 3 views. Exam time: 05/29/2024 Clinical history: Compression fracture, thoracic spine. CHRONIC SHARP PAIN X YEARS ON AND OFF. DR DURAN IS COMPRESSION FX. Comparison: 04/04/2023 Technique: Frontal, lateral, swimmer's views of the thoracic spine were obtained. Findings: Mild anterior wedge compression deformity, lower thoracic spine, unchanged. Intervertebral disc spaces are average width. Bone alignment is normal. Paraspinal stripes are unremarkable. Linear metallic foreign body identified in the left lateral chest wall. Procedure Note Javi Renee MD - 05/29/2024 [place] [id number] [place] [address] Examination: X-ray thoracic spine, 3 views. Exam time: 05/29/2024 Clinical history: Compression fracture, thoracic spine. CHRONIC SHARP PAINX YEARS ON AND OFF. DR DURAN IS COMPRESSION FX. Comparison: 04/04/2023 Technique: Frontal, lateral, swimmer's views of the thoracic spine wereobtained. Findings: Mild anterior wedge compression deformity, lower thoracic spine,unchanged. Intervertebral disc spaces are average width. Bone alignment isnormal. Paraspinal stripes are unremarkable. Linear metallic foreign bodyidentified in the left lateral chest wall. IMPRESSION: 1. Mild anterior wedge compression deformity, lower thoracic spine,unchanged. 2. Linear metallic foreign body identified in the left lateral chestwall. Ordered By: EDU GOODWIN Interpreted By: Javi Renee MD, 05/29/2024 5:24 PM Edu [facility] Final Result from Last 3 Months Insurance Care Teams Racing Driver Relationship Specialty Start Date End Date Edu Goodwin PA [address] [place] [phone] PCP - General PHYSICIAN RIVETER HAND 02/15/18
== END 2024-06-02 08:44 | disposition home or self-care (01) ==
PROVIDERS: PCP Physician Assistant; Visit Provider Physician Assistant
DX: R10.11 Right upper quadrant pain (principal); K76.0 Fatty (change of) liver, not elsewhere classified
CPT/HCPCS: 76705